=== PATIENT | male | born 1950 | race Caucasian/White ===

== ENCOUNTER 2018-01-11 11:17 | Emergency (ER) | payer OTHER ==
[2018-01-11 11:28] VITALS: BP 146/93; PULSE 101; TEMP 98.1; BMI 30.1
[2018-01-11] MEDS ORDERED: SODIUM CHLORIDE 1,000 ML IV STA (12:12)
[2018-01-11] MEDS ORDERED: ONDANSETRON 4 MG/2 ML VIAL IVPB ONE (12:12)
[2018-01-11] MEDS ORDERED: MECLIZINE HCL 25 MG TABLET (FP) PO ONE (12:13)
[2018-01-11] MEDS ORDERED: MECLIZINE HCL 25 MG TABLET (FP) ONE (12:17)
[2018-01-11] MEDS ORDERED: ONDANSETRON 4 MG/2 ML VIAL ONE (12:17)
[2018-01-11 12:52] LABS: BASO % 0.7 % (0-2.0); EOS % 1.6 % (0-4.5); HEMATOCRIT 42.9 % (35.4-49); HEMOGLOBIN 14.8 GM/dL (11.7-16.9); LYMPH % 19.1 % (8-40); MCH 29.6 pg (25.7-33.7); MCHC 34.6 g/dl (32.0-35.9); MEAN CELL VOLUME 85.7 fl (80-96); MEAN PLT VOLUME 9.6 fl (7.5-11.1); MONO % 6.3 % (3.8-10.2); NEUT % 72.3 % (42.8-82.8); PLATELET COUNT 208 K/MM3 (134-434); RBC 5.01 M/mm3 (4.00-5.60); RDW 13.6 % (11.9-15.9); WHITE BLOOD COUNT 7.2 K/mm3 (4.0-10.0)
[2018-01-11 13:15] LABS: ANION GAP 5 (8-16); BILIRUBIN,TOTAL 0.6 mg/dL (0.2-1.0); BLOOD UREA NITROGEN 13 mg/dL (7-18); CALCIUM 8.9 mg/dL (8.5-10.1); CHLORIDE 102 mmol/L (98-107); CO2 30 mmol/L (21-32); CREATININE 1.1 mg/dL (0.7-1.3); GLUCOSE,RANDOM 112 mg/dL (74-106); SGPT/ALT 19 U/L (12-78); SODIUM 137 mmol/L (136-145); TOT PROT 8.4 g/dl (6.4-8.2)
[2018-01-11 13:16] LABS: ALK PHOS 89 U/L (45-117)
[2018-01-11 13:17] LABS: POTASSIUM 3.7 mmol/L (3.5-5.1); SGOT/AST 21 U/L (15-37)
--- NOTE | 2018-01-11 13:28 | PDOC ---
History of Present Illness <Dinorah Rao - Last Filed: 01/11/18 15:42> - History of Present Illness Initial Comments: 01/11/18 13:24 The patient is a 67 year old male with past medical history of hypertension and peripheral vertigo who presents to the ED with complaints of nausea and dizziness since this morning. The patient states the onset began this morning. He reports sudden onset room spinning dizziness that is constant and worse when looking down and to the left. He reports his symptoms are similar to his past episodes of vertigo. The patient reports taking meclizine today which did not help. He denies any recent illness, fevers, chills, vomiting, diarrhea, cough, SOB, CP, or urinary symptoms. Denies PIERCE. Denies weakness/numbness in any extremity. Denies slurred speech or facial droop. <Dillan Melendrez - Last Filed: 01/11/18 16:03> - General Chief Complaint: Pain, Acute Stated Complaint: ABD PAIN, NAUSEA Time Seen by Provider: 01/11/18 11:30 Past History <Dinorah Rao - Last Filed: 01/11/18 15:42> - Past Medical History Asthma: No CVA: No COPD: No Diabetes: No HTN: Yes Hypercholesterolemia: No - Suicide/Smoking/Psychosocial Hx Smoking Status: No Smoking History: Never smoked Number of Cigarettes Smoked Daily: 0 Hx Alcohol Use: No Drug/Substance Use Hx: No Substance Use Type: None <Dillan Melendrez - Last Filed: 01/11/18 16:03> - Past Medical History Allergies/Adverse Reactions: Allergies Allergy/AdvReac Type Severity Reaction Status Date / Time No Known Allergies Allergy Verified 01/11/18 11:22 Home Medications: Ambulatory Orders Amlodipine Besylate [Norvasc] 5 mg PO DAILY 09/06/12 Meclizine HCl [Antivert] 25 mg PO QID PRN 09/06/12 Meclizine HCl [Antivert] 50 mg PO TID #90 tablet 09/06/12 Review of Systems - Review of Systems Comments:: 01/11/18 13:25 "GENERAL/CONSTITUTIONAL: No fever or chills. No weakness. HEAD, EYES, EARS, NOSE AND THROAT: No change in vision. No ear pain or discharge. No sore throat. CARDIOVASCULAR: No chest pain or shortness of breath. RESPIRATORY: No cough, wheezing, or hemoptysis. GASTROINTESTINAL: No nausea, vomiting, diarrhea or constipation. GENITOURINARY: No dysuria, frequency, or change in urination. MUSCULOSKELETAL: No joint or muscle swelling or pain. No neck or back pain. SKIN: No rash NEUROLOGIC: + room spinning dizziness, No headache, loss of consciousness, or change in strength/sensation. ENDOCRINE: No increased thirst. No abnormal weight change. HEMATOLOGIC/LYMPHATIC: No anemia, easy bleeding, or history of blood clots. ALLERGIC/IMMUNOLOGIC: No hives or skin allergy. " <Dillan Melendrez - Last Filed: 01/11/18 16:03> *Physical Exam - Vital Signs Last Vital Signs Temp Pulse Resp BP Pulse Ox 98.1 F 101 H 19 146/93 99 01/11/18 11:23 01/11/18 11:23 01/11/18 11:23 01/11/18 11:23 01/11/18 11:23 <Dinorah Rao - Last Filed: 01/11/18 15:42> - Vital Signs Last Vital Signs Temp Pulse Resp BP Pulse Ox 98.1 F 101 H 19 146/93 99 01/11/18 11:23 01/11/18 11:23 01/11/18 11:23 01/11/18 11:23 01/11/18 11:23 - Physical Exam Comments: 01/11/18 13:26 "GENERAL: Awake, alert, and fully oriented, in no acute distress. HEAD: No signs of trauma EYES: PERRLA, EOMI, sclera anicteric, conjunctiva clear ENT: Auricles normal inspection, hearing grossly normal, nares patent, oropharynx clear without exudates. Moist mucosa NECK: Nontender, no stepoffs, Normal ROM, supple, no lymphadenopathy, JVD, or masses LUNGS: Breath sounds equal, clear to auscultation bilaterally. No wheezes, and no crackles HEART: Regular rate and rhythm, normal S1 and S2, no murmurs, rubs or gallops ABDOMEN: Soft, nontender, normoactive bowel sounds. No guarding, no rebound. No masses EXTREMITIES: Normal range of motion, no edema. No clubbing or cyanosis. No cords, erythema, or tenderness NEUROLOGICAL: Cranial nerves II through XII intact. 5/5 strength and sensation in all extremities, Normal speech, normal gait, normal cerebellar function, no nystagmus + L sided jolynn-hallpike SKIN: Warm, Dry, normal turgor, no rashes or lesions noted. <ParvinDillan - Last Filed: 01/11/18 16:03> ED Treatment Course - LABORATORY CBC & Chemistry Diagram: 01/11/18 12:42 01/11/18 12:42 - ADDITIONAL ORDERS Additional order review: Laboratory Results 01/11/18 01/11/18 12:42 12:42 Sodium 137 Potassium 3.7 Chloride 102 Carbon Dioxide 30 Anion Gap 5 L BUN 13 D Creatinine 1.1 Creat Clearance w eGFR > 60 Random Glucose 112 H D Calcium 8.9 Total Bilirubin 0.6 AST 21 D ALT 19 Alkaline Phosphatase 89 Creatine Kinase 314 H Creatine Kinase Index 0.5 CK-MB (CK-2) 1.694 Troponin I < 0.02 Total Protein 8.4 H Albumin 4.0 01/11/18 12:42 RBC 5.01 MCV 85.7 MCHC 34.6 RDW 13.6 MPV 9.6 Neutrophils % 72.3 D Lymphocytes % 19.1 D Monocytes % 6.3 Eosinophils % 1.6 Basophils % 0.7 - RADIOLOGY Radiograph Interpretation: 01/11/18 15:42 Chest X-ray as reviewed by Dr. Altamirano reports no evidence of acute lung disease. - Medications Given in the ED: ED Medications Discontinued Medications Generic Name Dose Route Start Last Admin Trade Name Freq PRN Reason Stop Dose Admin Sodium Chloride 1,000 mls @ 1,000 mls/hr 01/11/18 12:12 01/11/18 12:22 Normal Saline - IV 01/11/18 13:11 1,000 mls/hr ASDIR STA Administration Meclizine HCl 25 mg 01/11/18 12:13 01/11/18 12:22 Antivert - PO 01/11/18 12:14 25 mg ONCE ONE Administration Ondansetron HCl 4 mg 01/11/18 12:12 01/11/18 12:22 Zofran Injection IVPB 01/11/18 12:13 4 mg ONCE ONE Administration <Dinorah Rao - Last Filed: 01/11/18 15:42> - LABORATORY CBC & Chemistry Diagram: 01/11/18 12:42 01/11/18 12:42 - ADDITIONAL ORDERS Additional order review: Laboratory Results 01/11/18 12:42 Sodium 137 Potassium 3.7 Chloride 102 Carbon Dioxide 30 Anion Gap 5 L BUN 13 D Creatinine 1.1 Creat Clearance w eGFR > 60 Random Glucose 112 H D Calcium 8.9 Total Bilirubin 0.6 AST 21 D ALT 19 Alkaline Phosphatase 89 Total Protein 8.4 H Albumin 4.0 01/11/18 12:42 RBC 5.01 MCV 85.7 MCHC 34.6 RDW 13.6 MPV 9.6 Neutrophils % 72.3 D Lymphocytes % 19.1 D Monocytes % 6.3 Eosinophils % 1.6 Basophils % 0.7 - RADIOLOGY Radiology Studies Ordered: Category Date Time Status CHEST PA & LAT [RAD] Stat Radiology 01/11/18 12:05 Ordered - Medications Given in the ED: ED Medications Discontinued Medications Generic Name Dose Route Start Last Admin Trade Name Freq PRN Reason Stop Dose Admin Sodium Chloride 1,000 mls @ 1,000 mls/hr 01/11/18 12:12 01/11/18 12:22 Normal Saline - IV 01/11/18 13:11 1,000 mls/hr ASDIR STA Administration Meclizine HCl 25 mg 01/11/18 12:13 01/11/18 12:22 Antivert - PO 01/11/18 12:14 25 mg ONCE ONE Administration Ondansetron HCl 4 mg 01/11/18 12:12 01/11/18 12:22 Zofran Injection IVPB 01/11/18 12:13 4 mg ONCE ONE Administration <Dillan Melendrez - Last Filed: 01/11/18 16:03> Medical Decision Making - Medical Decision Making 01/11/18 13:26 67 M with room spinning dizziness, consistent with pt's history of peripheral vertigo. Pt with no neuro deficits on exam. However, + jolynn hallpike suggestive of peripheral vertigo. Pt with no s/s cerebellar/central vertigo. - Labs - Meclizine, zofran - Delilah maneuver - Reassess 01/11/18 16:00 Pt reassessed s/p meclizine, zofran, and delilah maneuver. Pt now completely asymptomatic. Ambulatory with normal gait. Pt states he has neuro appointment this Wednesday. Pt is well appearing, with normal vitals. Clinically stable for DC at this time. I discussed the physical exam findings, ancillary test results and final diagnoses with the patient. I answered all of the patient's questions. The patient was satisfied with the care received and felt comfortable with the discharge plan and treatment plan. The patient agrees to follow up with the primary care physician within 24-72 hours. <Dillan Melendrez - Last Filed: 01/11/18 16:03> *DC/Admit/Observation/Transfer - Attestations Scribe Attestion: 01/11/18 15:43 Documentation prepared by Dinorah Rao, acting as medical office rep for Dillan Melendrez MD. <Dinorah Rao - Last Filed: 01/11/18 15:42> - Attestations Physician Attestion: 01/11/18 16:03 I, Dr. Dillan Melendrez MD, attest that this document has been prepared under my direction and personally reviewed by me in its entirety. I further attest, that it accurately reflects all work, treatment, procedures and medical decision -making performed by me. <Dillan Melendrez - Last Filed: 01/11/18 16:03> Diagnosis at time of Disposition: Vertigo - Discharge Dispostion Disposition: HOME - Referrals Referrals: No Samano [Primary Care Provider] - - Patient Instructions Printed Discharge Instructions: DI for Vertigo Additional Instructions: Follow up with your neurologist as scheduled on Wednesday for further evaluation of your vertigo. If you experience any worsening dizziness, nausea, headache, weakness or numbness, or any other concerning symptoms, return to the ER immediately. - Post Discharge Activity
--- NOTE | 2018-01-11 16:41 | EKG ---
Test Reason : Blood Pressure : / mmHG Vent. Rate : 077 BPM Atrial Rate : 077 BPM P-R Int : 200 ms QRS Dur : 102 ms QT Int : 386 ms P-R-T Axes : 056 013 047 degrees QTc Int : 436 ms NORMAL SINUS RHYTHM NORMAL ECG WHEN COMPARED WITH ECG OF 06-SEP-2012 12:39, NO SIGNIFICANT CHANGE WAS FOUND Confirmed by MD Santiago Edward ([id number]) on 01/11/2018 4:41:14 PM Referred By: Confirmed By:David Santiago MD
== END 2018-01-11 16:38 | disposition home or self-care (01) ==
LOC: JER 11:17
PROC: 3E033GC Introduction of Other Therapeutic Substance into Peripheral Vein, Percutaneous Approach (ICD-10-PCS; principal; 2018-01-11)
DX: H81.399 Other peripheral vertigo, unspecified ear (principal); I10 Essential (primary) hypertension
CPT/HCPCS: 36415; 71046-TC-FY; 80053; 82550; 82553; 84484; 85025; 93005; 93010; 96374; 99283-25; J7030

== ENCOUNTER 2022-09-14 04:26 | Day surgery (SDC) | payer OTHER ==
[2022-09-14 06:41] VITALS: BMI 29.7
[2022-09-14] MEDS ORDERED: ceFAZolin SODIUM 1 GM VIAL IVPB ONE (09:18)
[2022-09-14] MEDS ORDERED: ONDANSETRON 4 MG/2 ML VIAL IVPUSH PRN (10:07)
[2022-09-14] MEDS ORDERED: oxyCODONE HCL 5 MG TABLET PO PRN (10:07)
[2022-09-14] MEDS ORDERED: FENTANYL CITRATE/PF 50 MCG/ML VIAL ONE ×2 (10:13→10:48)
[2022-09-14] MEDS ORDERED: LACTATED RINGERS SOLUTION 1,000 ML IV SCH (10:15)
[2022-09-14 12:04] VITALS: RESP 20; TEMP 97.3
[2022-09-14 14:36] VITALS: BP 134/72; PULSE 70
== END 2022-09-14 14:30 | disposition home or self-care (01) ==
LOC: JASU-SURG 04:26
PROVIDERS: ATTEND Urology
PROC: 0VT08ZZ Resection of Prostate, Via Natural or Artificial Opening Endoscopic (ICD-10-PCS; principal; 2022-09-14 08:00)
DX: N40.1 Benign prostatic hyperplasia with lower urinary tract symptoms (principal)
CPT/HCPCS: 88305-TC; 94760